=== PATIENT | female | born 1985 | race Caucasian/White ===

== ENCOUNTER 2018-03-27 06:25 | Emergency (ER) | END 2018-03-27 09:23 | disposition home or self-care (01) ==

== ENCOUNTER 2018-07-24 13:54 | Emergency (ER) | payer BC ==
[~2018-07-24] VITALS: Ht 152.4 cm; Wt 62.4 kg
[~2018-07-24 13:54] MED LIST: AZIT250T PO; CLIN300C10 PO; DIPH25CA6 PO; EPIN0.3P4 INJ; FLUT9.9S NS; HYDR-3498 PO; IBUP-1542 PO; IBUP800T48 PO; MED4DP PO; PRED20TA PO; PROM6.25 PO; RANI150T35 PO
[2018-07-24 14:00] VITALS: Ht 152.4 cm; Wt 62.4 kg
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
[2018-07-24] MEDS ORDERED: GABA300C16 PO (18:04)
[2018-07-24] MEDS ORDERED: DIPH12.59 PO (18:05)
[2018-07-24] MEDS ORDERED: TOPI100T11 PO (18:05)
[2018-07-24] MEDS ORDERED: LOXA10CA PO (18:08)
[2018-07-24] MEDS ORDERED: CLON1TAB13 PO (18:08)
[2018-07-24] MEDS ORDERED: ASPI1TAB31 PO (18:09)
[2018-07-24] MEDS ORDERED: POTASSIUM CHLORIDE (SR) 20 MEQ TAB PO STA (20:58)
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
[2018-07-24] MEDS: OLANZAPINE 5 MG TAB PO SCH ×2 (21:00→22:37)
[2018-07-24] MEDS ORDERED: DIPHENHYDRAMINE 50 MG CAP PO SCH (21:00)
--- NOTE | 2018-07-25 | PSY ---
Date/Time of Note Date/Time of Note DATE: 07/25/18 TIME: 00:00 Psychiatric Subjective Eval Subjective Evaluation Patient location: emergency Chief Complaint: WOULD LIKE TO SPEAK TO MD CONFIDENTIALLY Hospitalization: yes Medical history Problems Medical Problems: (1) Contusion of right hip Status: Acute (2) Dental abscess Status: Acute (3) Hypokalemia Status: Acute (4) Psychosis Status: Acute (5) Right ankle sprain Status: Acute (6) Severe allergy Status: Acute (7) URI, acute Status: Acute Allergies: Coded Allergies: olanzapine (Verified Allergy, Mild, muscle twitching, 07/24/18) Penicillins (Verified Allergy, Unknown, RASH, ANAPHYLACTIC SHOCK, 07/24/18) Social History Marital status: single (She currently she is an employee here at [employer] patient's has no children) DPA/Conservatorship: No Occupation/[employer]: student Psychiatric Objective Eval Mental Status Examination: Laboratory Results Laboratory Tests Test 07/24/18 16:20 07/24/18 16:21 07/24/18 16:30 Beta HCG, Quantitative < 2.4 mIU/ml White Blood Count 7.6 10^3/ul Red Blood Count 4.15 10^6/ul Hemoglobin 12.6 g/dl Hematocrit 37.6 % Mean Corpuscular Volume 90.6 fl Mean Corpuscular Hemoglobin 30.4 pg Mean Corpuscular 33.5 g/dl Hemoglobin Concent Red Cell Distribution Width 13.5 % Platelet Count 352 10^3/UL Mean Platelet Volume 9.3 fl Immature Granulocytes % 0.400 % Neutrophils % 61.9 % Lymphocytes % 29.9 % Monocytes % 6.6 % Eosinophils % 0.9 % Basophils % 0.3 % Nucleated Red Blood Cells % 0.0 /100WBC Immature Granulocytes # 0.030 10^3/ul Neutrophils # 4.7 10^3/ul Lymphocytes # 2.3 10^3/ul Monocytes # 0.5 10^3/ul Eosinophils # 0.1 10^3/ul Basophils # 0.0 10^3/ul Nucleated Red Blood Cells # 0.0 10^3/ul Sodium Level 142 mmol/L Potassium Level 3.4 mmol/L Chloride Level 104 mmol/L Carbon Dioxide Level 24 mmol/L Anion Gap 14 Blood Urea Nitrogen 8 mg/dl Creatinine 0.59 mg/dl Est Glomerular Filtrat > 60 mL/min Rate mL/min Glucose Level 76 mg/dl Calcium Level 9.5 mg/dl Total Bilirubin 0.1 mg/dl Direct Bilirubin 0.00 mg/dl Indirect Bilirubin 0.1 mg/dl Aspartate Amino 25 IU/L Transf (AST/SGOT) Alanine 23 IU/L Aminotransferase (ALT/SGPT) Alkaline Phosphatase 54 IU/L Total Protein 8.1 g/dl Albumin 4.8 g/dl Globulin 3.30 g/dl Albumin/Globulin Ratio 1.45 Salicylates Level < 1.0 mg/dl Acetaminophen Level < 10.0 ug/ml Ethyl Alcohol Level < 10.0 mg/dl Urine Color YELLOW Urine Clarity CLEAR Urine pH 7.0 Urine Specific [place] 1.005 Urine Ketones NEGATIVE mg/dL Urine Nitrite NEGATIVE mg/dL Urine Bilirubin NEGATIVE mg/dL Urine Urobilinogen NEGATIVE mg/dL Urine Leukocyte Esterase NEGATIVE Kaila/ul Urine Microscopic RBC 1 /HPF Urine Microscopic WBC 2 /HPF Urine Squamous Epithelial Cells FEW /HPF Urine Bacteria FEW /HPF Urine Hemoglobin 2+ mg/dL Urine Glucose NEGATIVE mg/dL Urine Total Protein NEGATIVE mg/dl Urine Opiates Screen NEGATIVE Urine Barbiturates NEGATIVE Urine Amphetamines Screen NEGATIVE Urine Benzodiazepines Screen NEGATIVE Urine Cocaine Screen NEGATIVE Urine Cannabinoids NEGATIVE Assessment and Plan Recommendation/Plan Discharge Disposition: Psychiatric inpatient Legal Status: Place involuntary hold Assessment Additional comments: IDENTIFYING INFORMATION: 32 year old Female patient who is currently located at the hospital and for whom psychiatric consultation was requested. SOURCES OF INFORMATION: The patient who appears to be unreliable and the medical records; the nursing staff. CHIEF COMPLAINT: "I stopped drinking alcohol for Lent". HISTORY OF PRESENT ILLNESS: The patient was interviewed via telemedicine in the presence of and under the supervision of nursing staff of the hospital. The consent to conducting this interview via telemedicine was obtained by the nursing staff at the hospital. The patient is very illogical during the interview. she reports that she stop drinking alcohol because of Lent 3 weeks ago. Pt was seen by Dr. Greer earlier today. Starting Zyprexa was recommended but pt refused to take it reporting an allergic reaction. The patient was diagnosed with bipolar disorder, with psychotic features. PAST MEDICAL HISTORY: seasonal allergies. CURRENT MEDICATIONS: clonazepam 1 mg po bid prn anxiety, claritine, flonase, benadryl 50 mg po qhs, loxapine 10 mg po qhs, gabapentin 1500 mg at bedtime. ALLERGIES TO MEDICATIONS: PCN, zyprexa. LABORATORY TESTS: CBC wnl, CMP with potassium 3.4,, UDS -, betahCG negative, alcohol level not detected. REVIEW OF SYSTEMS: Constitutional (e.g., fever, weight loss): negative; Eyes, Ears, Nose, Mouth, Throat: negative; Cardiovascular: negative; Respiratory: negative; Gastrointestinal: negative; Genitourinary: negative; Musculoskeletal: negative; Integumentary (skin and/or breast): negative; Neurological: negative; Psychiatric: as per HPI; Endocrine: negative; Hematologic/Lymphatic: negative; Allergic/Immunologic: negative. MENTAL STATUS EXAMINATION: General Appearance and Behavior: somewhat restless, appears to be responding to internal stimuli, partially cooperative with most of the interview, excessively pleasant with the current interviewer, makes poor eye contact, poorly groomed, increased psychomotor activity, no abnormal movements noted. Speech: Normal rate, regular rhythm, normal latency, normal volume. Flow of thought: tangential, illogical, not goal-directed. Content of thought: denies auditory hallucinations, + paranoid delusions, no visual hallucinations, denies suicidal ideation; no homicidal ideation. Mood: "OK". Affect: agitated, angry, flat, decreased range of reactivity. Attention: normal based on the interview. Insight: poor. Judgment: poor. Memory: normal based on the interview. Sensorium: alert and oriented to person, date, place. ASSESSMENT: The patient's presentation and history are consistent with the diagnosis of unspecified psychotic disorder. The patient presents with an exacerbation of psychosis in the context of medication noncompliance, psychosocial stressors and substance use. PLAN: - Medication management: Would continue clonazepam 1 mg po bid prn anxiety, benadryl 50 mg po qhs, loxapine 10 mg po qhs, gabapentin 300 mg by mouth 3 times a day. Would start haloperidol 5 mg IM PRN severe agitation q4 hours. Would start diphenhydramine 50 mg IM PRN severe agitation q4 hours. Would start lorazepam 2 mg IM PRN severe agitation q4 hours Will defer to the inpatient psychiatry team for other medication changes. - Labs: No other laboratory tests are needed at this time. - Psychotherapy: Provided supportive psychotherapy and psychoeducation. - Disposition: Would recommend involuntary admission to the inpatient psychiatric unit given the severity of the patient's psychiatric condition and the fact that the patient is an imminent danger to self and/or others so long as the patient has been cleared medically for admission to psychiatry. Inpatient psychiatric admission is at this time the least restrictive environment where the patient can receive the psychiatric care that is needed. Would place on suicide precautions. The patient fulfills criteria for being placed on an involuntary hold for being a danger to self or others or gravely disabled due to a psychiatric disorder. KIM BERMUDEZ MD Jul 25, 2018 00:00
[2018-07-25] MEDS ORDERED: LOXAPINE SUCCINATE 10 MG PO ONE (01:30)
[2018-07-25] MEDS ORDERED: clonAZEPAM 0.5 MG TAB PO ONE (01:30)
[2018-07-25] MEDS ORDERED: LORAZEPAM 2 MG INJ IM ONE (05:00)
[2018-07-25] MEDS ORDERED: HALOPERIDOL 5 MG INJ IM ONE (05:00)
--- NOTE | 2018-07-25 05:24 | EN ---
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 Found to be stable for outpatient management resources given. Patient will be discharged home. Patient denies suicidal homicidal ideation. Currently denies any auditory or visual hallucinations. RADHA CACERES Jul 25, 2018 05:24
[2018-07-25 05:36] VITALS: BP 125/101; PULSE 96; RESP 18
[2018-07-25] MEDS ORDERED: GABAPENTIN 300 MG CAP PO ONE (09:00)
[2018-07-25] MEDS ORDERED: DIPHENHYDRAMINE 50 MG CAP PO ONE (21:00)
== END 2018-07-25 05:36 | disposition home or self-care (01) ==
LOC: EEVIPCON 13:54 → E/R 13:54
DX: F29 Unspecified psychosis not due to a substance or known physiological condition (principal); E87.6 Hypokalemia; Z79.82 Long term (current) use of aspirin
CPT/HCPCS: 36415; 80053; 80307; 81001; 84702; 85025; 99284

== ENCOUNTER 2018-08-02 10:01 | Emergency (ER) | payer BC ==
[~2018-08-02] VITALS: Ht 157.5 cm; Wt 64.8 kg
[~2018-08-02 10:01] MED LIST changes: +ASPI1TAB31 PO; -AZIT250T PO; -CLIN300C10 PO; +CLON1TAB13 PO; +DIPH12.59 PO; -DIPH25CA6 PO; -EPIN0.3P4 INJ; -FLUT9.9S NS; +GABA300C16 PO; -HYDR-3498 PO; -IBUP-1542 PO; -IBUP800T48 PO; +LOXA10CA PO; -MED4DP PO; -PRED20TA PO; -PROM6.25 PO; -RANI150T35 PO; +TOPI100T11 PO
[2018-08-02 10:04] VITALS: Ht 157.5 cm; Wt 64.8 kg
[2018-08-02] MEDS ORDERED: SOD CHLORIDE 0.9% 1,000 ML IV STA (10:40)
--- NOTE | 2018-08-02 10:44 | ERD ---
ER Documentation Chief Complaint Chief Complaint PT C/O FATIQUE AND GENERALIZED WEAKNESS, LEG PAIN, POSSIBLE LOW K HPI This is a 32-year-old female who with a past medical history PTSD anxiety and bipolar disorder. The patient indicates that she had recently been at loss in [facility] where she been placed on a hold. She indicates that today she presents to the emergency department as she is having generalized weakness, f eels dehydrated, fatigued with bilateral leg pain. She describes the leg pain is cramping in nature. She denies any calf tenderness or swelling. She indicates she has had similar symptoms when she is hypokalemic. She currently denies any suicidal homicidal thoughts or ideations. She denies any auditory tactile or visual hallucinations. She indicates she has been taking her medications as instructed which also includes Klonopin for her anxiety. ROS All systems reviewed and are negative except as per history of present illness. Medications Home Meds Reported Medications Aspirin/Acetaminophen/Caffeine (Excedrin Migraine Caplet) 1 Each Tablet, 1 EACH PO NEEDED, TAB 07/24/18 Clonazepam* (Clonazepam*) 1 Mg Tablet, 0.5 MG PO TID PRN for ANXIETY, TAB 07/24/18 Loxapine Succinate (Loxapine) 10 Mg Capsule, 10 MG PO QHS, CAP FOR 10 DAYS,START DATE 08/02/18 07/24/18 Loxapine Succinate (Loxapine) 10 Mg Capsule, 20 MG PO QHS, CAP FOR 10 DAYS,START DATE 07/23/18 07/24/18 Diphenhydramine Hcl* (Diphenhydramine Hcl*) 12.5 Mg/5 Ml Elixir, 10 MG PO NEEDED PRN for ITCHING, ML 07/24/18 Topiramate* (Topiramate*) 100 Mg Tablet, 100 MG PO BID, TAB 07/24/18 Gabapentin* (Gabapentin*) 300 Mg Capsule, 5 CAP PO QHS, #60 CAP 07/24/18 Allergies Allergies: Coded Allergies: olanzapine (Verified Allergy, Mild, muscle twitching, 07/24/18) Penicillins (Verified Allergy, Unknown, RASH, ANAPHYLACTIC SHOCK, 07/24/18) PMhx/Soc Hx Psychiatric Problems: Yes (anxiety) Hx Miscellaneous Medical Probl: Yes (allergic reactions, anaphylactic shock) Hx Alcohol Use: Yes (socially) Hx Substance Use: Yes (MEDICINAL MARIJUANA) Hx Tobacco Use: No Smoking Status: Never smoker Physical Exam Vitals Vital Signs Date Temp Pulse Resp B/P (MAP) Pulse Ox O2 O2 Flow FiO2 Time Delivery Rate 08/02/18 98.2 76 18 131/80 96 Room Air 16:21 (97) 08/02/18 97.2 104 20 143/94 99 10:04 (110) Physical Exam Constitutional:Well-developed. Well-nourished. Patient tearful HEENT:Normocephalic. Atraumatic.Pupils were equal round reactive to light. Moist mucous membranes.No tonsillar exudates. Neck: No nuchal rigidity. No lymphadenopathy. No posterior cervical spine tenderness or step-offs. Respiratory: Not using accessory muscles of respiration.Lungs were clear to auscultation bilaterally. No rhonchi. No rales. No wheezing. Cardiovascular: Regular rate regular rhythm.No murmurs. No rubs were marck reciated.S1, S2 normal. Distal pulses are palpable 2+ bilaterally. GI: Abdomen was soft. Nontender. Non Distended. No pulsatile abdominal masses or bruits. No rebound. No guarding. Bowel sounds were present and normal. Muscle skeletal: Full range of motion of both the upper and lower extremities bi laterally.Normal muscle tone.No assymetrical calf tenderness or swelling. Negative Homans sign Skin: No petechia, no purpura. No lesions on the palms or the soles of the feet. No maculopapular rash. NEURO: Patient was alert, awake, orientated x3.No facial droop. Gait observed and patient was unsteady on her gait was slurred speech. No focal neurological deficits. PSYCH: Result Diagram: 08/02/18 1100 08/02/18 1100 Results 24 hrs Laboratory Tests Test 08/02/18 10:56 08/02/18 11:00 08/02/18 11:02 Urine Color STRAW Urine Clarity CLEAR Urine pH 7.0 Urine Specific [place] 1.004 Urine Ketones NEGATIVE mg/dL Urine Nitrite NEGATIVE mg/dL Urine Bilirubin NEGATIVE mg/dL Urine Urobilinogen NEGATIVE mg/dL Urine Leukocyte Esterase NEGATIVE Kaila/ul Urine Hemoglobin NEGATIVE mg/dL Urine Glucose NEGATIVE mg/dL Urine Total Protein NEGATIVE mg/dl Urine Opiates Screen Negative Urine Barbiturates Negative Urine Amphetamines Screen Negative Urine Benzodiazepines Screen Negative Urine Cocaine Screen Negative Urine Cannabinoids Positive White Blood Count 7.6 10^3/ul Red Blood Count 3.63 10^6/ul Hemoglobin 11.0 g/dl Hematocrit 33.1 % Mean Corpuscular Volume 91.2 fl Mean Corpuscular Hemoglobin 30.3 pg Mean Corpuscular 33.2 g/dl Hemoglobin Concent Red Cell Distribution Width 13.5 % Platelet Count 352 10^3/UL Mean Platelet Volume 8.8 fl Immature Granulocytes % 0.400 % Neutrophils % 66.6 % Lymphocytes % 25.1 % Monocytes % 6.2 % Eosinophils % 1.6 % Basophils % 0.1 % Nucleated Red Blood Cells % 0.0 /100WBC Immature Granulocytes # 0.030 10^3/ul Neutrophils # 5.0 10^3/ul Lymphocytes # 1.9 10^3/ul Monocytes # 0.5 10^3/ul Eosinophils # 0.1 10^3/ul Basophils # 0.0 10^3/ul Nucleated Red Blood Cells # 0.0 10^3/ul Prothrombin Time 11.7 Sec Prothrombin Time Ratio 0.9 INR International 0.85 Normalized Ratio Activated Partial Thromboplast 27.4 Sec Time Sodium Level 140 mmol/L Potassium Level 3.6 mmol/L Chloride Level 109 mmol/L Carbon Dioxide Level 22 mmol/L Anion Gap 9 Blood Urea Nitrogen 14 mg/dl Creatinine 0.62 mg/dl Est Glomerular Filtrat > 60 mL/min Rate mL/min Glucose Level 102 mg/dl Calcium Level 9.9 mg/dl Total Bilirubin 0.0 mg/dl Direct Bilirubin 0.00 mg/dl Indirect Bilirubin 0.0 mg/dl Aspartate Amino 24 IU/L Transf (AST/SGOT) Alanine 21 IU/L Aminotransferase (ALT/SGPT) Alkaline Phosphatase 59 IU/L Total Protein 7.2 g/dl Albumin 4.3 g/dl Globulin 2.90 g/dl Albumin/Globulin Ratio 1.48 Salicylates Level 1.2 mg/dl Acetaminophen Level < 10.0 ug/ml Ethyl Alcohol Level < 10.0 mg/dl POC Beta HCG, Qualitative NEGATIVE Current Medications Medications Dose Sig/Ester Start Time Status Last (Trade) Ordered Route PRN Stop Time Admin Dose Reason Admin Sodium 1,000 ml @ Q1H STAT 08/02/18 DC 08/02/18 Chloride 1,000 mls/hr IV 10:40 10:59 4/18/19 11:39 Procedures/MDM This is a 32-year-old female with a known history of bipolar disorder presented to the emergency department concerns with electrolyte abnormalities. She has been having muscle cramps and stated she felt that her potassium was low. She also states she felt dehydrated and had mild clinical dehydration. IV access had been established. She received a liter bolus of normal saline. The patient initially arrived to the hospital she did appear slightly drowsy but stated she had just taken her benzodiazepines. She denied any suicidal homicidal thoughts or ideations. She did not appear to have acute psychosis or gravely disabled to the point where she was unable to take care of herself. She does live with her mother. She has outpatient psychiatric help which she has been receiving. Observation Note: Time: 4 hours Family Hx: No Hypertension Evaluation: Multiple exams showed improving symptoms and no evidence of altered mental status, psychosis or suicidal homicidal thoughts. The patient will be signed out to the oncoming ED physician as the patient at this time states she is unable to find her purse and does not currently have a ride home. She started to become very nervous and anxious and tearful. Therefore I indicated to the oncoming ED physician that I did feel the patient might benefit from a telemetry psych evaluation. Departure Diagnosis: Primary Impression: Dehydration, mild Condition: KHUSHI Unger MD Aug 02, 2018 10:44
--- NOTE | 2018-08-02 15:39 | PSY ---
Date/Time of Note Date/Time of Note DATE: 08/02/18 TIME: 15:35 Psychiatric Subjective Eval Consent Pt consented to telemedicine: Yes Subjective Evaluation Patient location: emergency Chief Complaint: PT C/O FATIQUE AND GENERALIZED WEAKNESS, LEG PAIN, POSSIBLE LOW K History of present illness 32 yo single female with hx psychosis self presented to ED c/o weakness; she says she felt dehydrated and thought she might have low potassium. Pt denies depressed mood, denies SI or HI, denies AH or VH; she has some somatic delusions but overall says she is fine. Pt is meds complaint, recently discharged from in pt psych. Past psychiatric history prior inpt due to psychosis Hospitalization: yes Family History denies Medical history Problems Medical Problems: (1) Contusion of right hip Status: Acute (2) Dental abscess Status: Acute (3) Hypokalemia Status: Acute (4) Psychosis Status: Acute (5) Right ankle sprain Status: Acute (6) Severe allergy Status: Acute (7) URI, acute Status: Acute Allergies: Coded Allergies: olanzapine (Verified Allergy, Mild, muscle twitching, 07/24/18) Penicillins (Verified Allergy, Unknown, RASH, ANAPHYLACTIC SHOCK, 07/24/18) Substance Abuse Substance use: No known substance abuse Social History Marital status: single Level of education: college DPA/Conservatorship: No Occupation/Fdc: disabled Psychiatric Objective Eval Review of Systems: Review of Systems: Not Applicable Physical Examination: Physical Examination: Not Applicable Sleep: Adequate Appetite: Adequate Energy: Adequate Interest: Adequate Mental Status Examination: Appearance: Groomed Eye Contact: Good Psychomotor Activity: Normal Behavior: Cooperative Speech: Clear AFFECT: Appropriate Mood: Appropriate/Full Though Process: Illogical Thought Content: Normal, Delusions Suicidal: No Homicidal: No On 72 hour hold: No Orientation: x4 Cognition: Alert Insight: Impared Judgement: Impared Laboratory Results Laboratory Tests Test 08/02/18 10:56 08/02/18 11:00 08/02/18 11:02 Urine Color STRAW Urine Clarity CLEAR Urine pH 7.0 Urine Specific [place] 1.004 Urine Ketones NEGATIVE mg/dL Urine Nitrite NEGATIVE mg/dL Urine Bilirubin NEGATIVE mg/dL Urine Urobilinogen NEGATIVE mg/dL Urine Leukocyte Esterase NEGATIVE Kaila/ul Urine Hemoglobin NEGATIVE mg/dL Urine Glucose NEGATIVE mg/dL Urine Total Protein NEGATIVE mg/dl Urine Opiates Screen Negative Urine Barbiturates Negative Urine Amphetamines Screen Negative Urine Benzodiazepines Screen Negative Urine Cocaine Screen Negative Urine Cannabinoids Positive White Blood Count 7.6 10^3/ul Red Blood Count 3.63 10^6/ul Hemoglobin 11.0 g/dl Hematocrit 33.1 % Mean Corpuscular Volume 91.2 fl Mean Corpuscular Hemoglobin 30.3 pg Mean Corpuscular 33.2 g/dl Hemoglobin Concent Red Cell Distribution Width 13.5 % Platelet Count 352 10^3/UL Mean Platelet Volume 8.8 fl Immature Granulocytes % 0.400 % Neutrophils % 66.6 % Lymphocytes % 25.1 % Monocytes % 6.2 % Eosinophils % 1.6 % Basophils % 0.1 % Nucleated Red Blood Cells % 0.0 /100WBC Immature Granulocytes # 0.030 10^3/ul Neutrophils # 5.0 10^3/ul Lymphocytes # 1.9 10^3/ul Monocytes # 0.5 10^3/ul Eosinophils # 0.1 10^3/ul Basophils # 0.0 10^3/ul Nucleated Red Blood Cells # 0.0 10^3/ul Prothrombin Time 11.7 Sec Prothrombin Time Ratio 0.9 INR International 0.85 Normalized Ratio Activated Partial Thromboplast 27.4 Sec Time Sodium Level 140 mmol/L Potassium Level 3.6 mmol/L Chloride Level 109 mmol/L Carbon Dioxide Level 22 mmol/L Anion Gap 9 Blood Urea Nitrogen 14 mg/dl Creatinine 0.62 mg/dl Est Glomerular Filtrat > 60 mL/min Rate mL/min Glucose Level 102 mg/dl Calcium Level 9.9 mg/dl Total Bilirubin 0.0 mg/dl Direct Bilirubin 0.00 mg/dl Indirect Bilirubin 0.0 mg/dl Aspartate Amino 24 IU/L Transf (AST/SGOT) Alanine 21 IU/L Aminotransferase (ALT/SGPT) Alkaline Phosphatase 59 IU/L Total Protein 7.2 g/dl Albumin 4.3 g/dl Globulin 2.90 g/dl Albumin/Globulin Ratio 1.48 Salicylates Level 1.2 mg/dl Acetaminophen Level < 10.0 ug/ml Ethyl Alcohol Level < 10.0 mg/dl POC Beta HCG, Qualitative NEGATIVE Assessment and Plan Assessment/Diagnosis Diagnosis Unspecified psychotic disorder Recommendation/Plan Medication Management pt will continue her current meds regime. Multiple antipsychotics: Yes Discharge Disposition: Community (home) Legal Status: Voluntary ROMMEL ERICKSON MD Aug 02, 2018 15:39
[2018-08-02 16:21] VITALS: BP 131/80; PULSE 76; RESP 18
== END 2018-08-02 16:26 | disposition home or self-care (01) ==
LOC: EEVIPCON 10:01 → E/R 10:01
DX: E86.9 Volume depletion, unspecified (principal); R53.83 Other fatigue
CPT/HCPCS: 80053; 80307; 81003; 81025; 85025; 85610; 85730; 99284; J7030